=== PATIENT | male | born 1980 | race Caucasian/White ===

== ENCOUNTER 2019-01-18 09:07 | Emergency (ER) | payer OTHER ==
[2019-01-18 09:37] VITALS: RESP 18
--- NOTE | 2019-01-18 09:45 | C.PDOC ---
History Of Present Illness 38 years old male presents to ED for complaints of cold symptoms that began 3-4 days ago. Patient reports symptoms of sore throat, nasal congestion, cough, and left ear pain. Denies fever, shortness of breath, or any other complaints. PMD: * No PMD Time Seen by Provider: 01/18/19 09:17 Chief Complaint (Nursing): Cough, Cold, Congestion History Per: Patient History/Exam Limitations: no limitations Onset/Duration Of Symptoms: Days Current Symptoms Are (Timing): Still Present Location Of Pain: Ear(s), Throat Sick Contacts (Context): None Associated Symptoms: Sore Throat, Cough, Nasal Congestion. denies: Fever Ear Symptoms: Left: Ear Pain, Right: None Recent travel outside of the [place]: No Past Medical History Reviewed: Historical Data, Nursing Documentation, Vital Signs Vital Signs: Last Vital Signs Temp 97.7 F 01/18/19 09:13 Pulse 71 01/18/19 09:13 Resp 18 01/18/19 09:35 BP 123/73 01/18/19 09:13 Pulse Ox 100 01/18/19 09:13 - Medical History PMH: No Chronic Diseases Surgical History: No Surg Hx Family History: States: No Known Family Hx - Social History Hx Alcohol Use: No Hx Substance Use: No Review Of Systems Except As Marked, All Systems Reviewed And Found Negative. Constitutional: Negative for: Fever Respiratory: Negative for: Shortness of Breath Physical Exam - Physical Exam Additional Physical Exam Comments: Constitutional: No acute distress. Head: Normocephalic. Atraumatic. Eyes: PERRL. ENT: Positive pharyngeal erythema. Positive nasal congestion. Moist mucous membranes. No adenopathy. TM Normal bilaterally. Neck: Supple. No nuchal rigidity. Cardiovascular: Regular rate. Radial pulse 2+ bilaterally. Chest: No tenderness. Respiratory: Clear to auscultation bilaterally. Clear in all mendez. GI: Soft. Nontender. Nondistended. Back: No CVA tenderness. Musculoskeletal: No tenderness or swelling of extremities. Skin: No rash. Neurologic: Alert, no focal deficit. ED Course And Treatment O2 Sat by Pulse Oximetry: 100 (RA) Pulse Ox Interpretation: Normal Medical Decision Making Medical Decision Making: Plan: * Rapid Strep Swab Rapid strep negative. Will discharge, supportive care, f/u primary care, return to ED for worsening pain, neck stiffness, fever, or any other problem. Disposition - Disposition Referrals: [facility] [Outside] Disposition: HOME/ ROUTINE Disposition Time: 11:06 Condition: GOOD Prescriptions: D-Methorphan/PE/Acetaminophen [Vicks Dayquil Liquicaps] 2 cap PO Q6H #18 capsule Guaifenesin [Mucinex] 1,200 mg PO Q12H #18 tab.er.12h Ibuprofen [Motrin] 1 tab PO Q6 #30 tab Instructions: Upper Respiratory Infection (ED) Forms: [employer] (Maori) - Clinical Impression Clinical Impression: Upper respiratory infection - Scribe Statement The provider has reviewed the documentation as recorded by the Scribe Mary Salinas All medical record entries made by the Scribe were at my direction and personally dictated by me. I have reviewed the chart and agree that the record accurately reflects my personal performance of the history, physical exam, medical decision making, and the department course for this patient. I have also personally directed, reviewed, and agree with the discharge instructions and disposition.[email or web address]
[2019-01-18 11:18] VITALS: BP 109/72; PULSE 66; TEMP 98.7; O2SAT 99
== END 2019-01-18 11:20 | disposition home or self-care (01) ==
LOC: C.ER 09:07
DX: J06.9 Acute upper respiratory infection, unspecified (principal)